=== PATIENT | male | born 1985 | race African-American/Black ===

== ENCOUNTER 2020-06-02 17:44 | Emergency (ER) | payer OTHER ==
--- NOTE | 2020-06-02 17:48 | PDOC ---
History of Present Illness - General Chief Complaint: Injury Stated Complaint: LEFT SHOULDER INJURY Time Seen by Provider: 06/02/20 17:48 - History of Present Illness Initial Comments: 06/02/20 18:36 PT presents to the ED complaining of R shoulder pain after falling from his skateboard onto his L shoulder. Denies other injuries or complaints. Past History - Medical History Allergies/Adverse Reactions: Allergies Allergy/AdvReac Type Severity Reaction Status Date / Time No Known Allergies Allergy Verified 06/02/20 17:45 Home Medications: Ambulatory Orders NK [No Known Home Medication] 06/02/20 Review of Systems - Review of Systems Able to Perform ROS?: Yes Is the patient limited Romansh proficient: No Constitutional: No: Symptoms Reported, See HPI, Chills, Diaphoresis, Fever, Loss of Appetite, Malaise, Night Sweats, Weakness, Weight Stable, Unintentional Wgt. Loss, Unexplained wgt Loss, Other HEENTM: No: Symptoms Reported, See HPI, Eye Pain, Blurred Vision, Tearing, Recent change in vision, Double Vision, Cataracts, Ear Pain, Ocular Prothesis, Ear Discharge, Nose Pain, Nose Congestion, Tinnitus, Nose Bleeding, Hearing Loss, Throat Pain, Throat Swelling, Mouth Pain, Dental Problems, Difficulty Swallowing, Mouth Swelling, Other Respiratory: No: Symptoms reported, See HPI, Cough, Orthopnea, Shortness of Breath, SOB with Exertion, SOB at Rest, Stridor, Wheezing, Productive cough, Hemoptysis, Other Cardiac (ROS): No: Symptoms Reported, See HPI, Chest Pain, Edema, Irregular Heart Rate, Lightheadedness, Palpitations, Syncope, Chest Tightness, Other ABD/GI: No: Symptoms Reported, See HPI, Abdominal Distended, Abd. Pain w/ defecation, Blood Streaked Bowels, Constipated, Diarrhea, Difficulty Swallowing, Nausea, Poor Appetite, Poor Fluid Intake, Rectal Bleeding, Vomiting, Indigestion, Abdominal cramping, Tarry Stools, Other : No: Symptoms Reported, See HPI, Burning, Dysuria, Discharge, Frequency, Flank Pain, Hematuria, Incontinence, Pain, Urgency, Testicular Mass, Testicular Swelling, Lesions, Testicular Pain, Other Musculoskeletal: Yes: Joint Pain *Physical Exam - Physical Exam 06/02/20 19:08 gen: alert, NAD Ext: LUE: no deformity of the shoulder. No ecchymosis. + tenderness over the acromion. Able to abduct to 90 degrees and internally rotate. intact sensation over the deltoid. No deformity or tenderness of the upper arm, forearm, wrist or elbow. Medical Decision Making - Medical Decision Making 06/02/20 19:09 Pt presents to the ED complaining of L shoulder pain after fall. No fracture on my read of xray. Will discharge home. Discharge - Discharge Information Problems reviewed: Yes Clinical Impression/Diagnosis: Sprain of left shoulder Qualifiers: Encounter type: initial encounter Shoulder sprain type: unspecified sprain Qualified Code(s): S43.402A - Unspecified sprain of left shoulder joint, initial encounter Condition: Good Disposition: HOME - Admission No - Follow up/Referral Referrals: Wes De Anda DO [Staff Physician] - - Patient Discharge Instructions Patient Printed Discharge Instructions: DI for Shoulder Sprain Additional Instructions: you came to the Ed for pain in your left shoulder. WE did xrays, which do not show a fracture or dislocation on my read. You should return to the ED for severe pain and swelling, if you are unable to move your arm, numbness of your shoulder or hand, other new or worsening symptoms. Call the orthopedic surgeon if your symptoms have not resolved within two weeks. - Post Discharge Activity
[2020-06-02 18:00] VITALS: BP 127/75; PULSE 98; TEMP 98.4; BMI 21.7
[2020-06-02] MEDS ORDERED: KETOROLAC TROMETHAMINE 60 MG/2 ML VIAL IM ONE (18:02)
[2020-06-02] MEDS ORDERED: KETOROLAC TROMETHAMINE 60 MG/2 ML VIAL ONE (18:09)
== END 2020-06-02 19:22 | disposition home or self-care (01) ==
LOC: FER 17:44
PROC: 3E0233Z Introduction of Anti-inflammatory into Muscle, Percutaneous Approach (ICD-10-PCS; principal; 2020-06-02)
DX: S43.402A Unspecified sprain of left shoulder joint, initial encounter (principal)
CPT/HCPCS: 73030-TC-LT-FY; 99284-25